=== PATIENT | male | born 1990 | race Caucasian/White ===

== ENCOUNTER 2017-09-23 00:33 | Emergency (ER) | payer SELFPAY ==
--- NOTE | 2017-09-23 00:49 | CPEKG ---
Heart Rate: 75 RR Interval: 800 P-R Interval: 176 QRSD Interval: 92 QT Interval: 360 QTC Interval: 402 P [place]: 56 QRS [place]: 43 T Wave [place]: 29 EKG Severity - OTHERWISE NORMAL ECG - EKG Impression: SINUS ARRHYTHMIA, RATE 56-81 Electronically Signed By: Sanjuanita Gao 23-Sep-2017 06:15:37
[2017-09-23 01:40] LABS: PLATELET COUNT 308 10^3/uL (150-400)
[2017-09-23] MEDS ORDERED: KETOROLAC 15 MG/1 ML SDV IVP ONE (02:07)
--- NOTE | 2017-09-23 02:18 | EDPHY ---
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 He thought his symptoms were related to allergies and took some decongestant. Then he noticed chest pain which he feels on his anterior chest which feels like pressure. He tried to go to sleep but still felt the pain so came into the emergency department. He has not had a fever. He has not any leg swelling. He has not had any recent airplane travel or long car rides. He has no personal or family history of DVT or PE. He denies any trauma to his chest.. REVIEW OF SYSTEMS Constitutional: No fever, no chills. Eyes: No discharge. ENT: No sore throat. Cardiovascular: Positive for chest pain, no palpitations. Respiratory: Positive for cough, no shortness of breath. Gastrointestinal: No abdominal pain, no vomiting. Genitourinary: No hematuria. Musculoskeletal: No back pain. Skin: No rashes. Neurological: No headache. PMHx: History of esophageal foreign body, 2 prior ER visits for this Soc Hx: Housed, nonsmoker PHYSICAL General Appearance: Alert, no distress Eyes: Pupils equal and round no pallor or injection ENT, Mouth: Mucous membranes moist Respiratory: There are no retractions, lungs are clear to auscultation Cardiovascular: Regular rate and rhythm Chest wall: Anterior chest wall tenderness to palpation Gastrointestinal: Abdomen is soft and non-tender, no masses, bowel sounds normal Neurological: A&O, moves all extremities Skin: Warm and dry, no rashes Musculoskeletal: Neck is supple non tender Extremities: symmetrical, full range of motion Psychiatric: Patient is oriented X 3, there is no agitation Source: Patient Exam Limitations: No limitations - Medical/Surgical History Hx Asthma: No Hx Chronic Respiratory Disease: No Hx Diabetes: No Hx Cardiac Disease: No Hx Renal Disease: No Hx Cirrhosis: No Hx Alcoholism: No Hx HIV/AIDS: No Hx Splenectomy or Spleen Trauma: No Other PMH: FOOD STUCK IN ESOPH, R TIB FX - orif - Social History Smoking Status: Never smoked Constitutional: Initial Vital Signs Temperature (C) 36.9 C 09/23/17 00:37 Heart Rate 84 09/23/17 00:37 Respiratory Rate 18 09/23/17 00:37 Blood Pressure 143/89 H 09/23/17 00:37 O2 Sat (%) 93 09/23/17 00:37 O2 Delivery Mode Room Air Allergies/Adverse Reactions: No Known Allergies Allergy (Verified 09/23/17 00:40) Home Medications: Medication Instructions Recorded ZYRTEC 10/12/14 Azithromycin 250 mg PO DAILY 5 Days #6 tablet 09/23/17 Cefdinir [Omnicef (*)] 300 mg PO BID 10 Days cap 09/23/17 Medical Decision Making - Diagnostics EKG Interpretation: EKG: Complete interpretation has been separately recorded in the [facility] archive. Summary impression: Normal sinus rhythm Imaging Results: Chest x-ray two view shows no cardiomegaly, no effusion, possible retrocardiac infiltrate, interpreted by me, radiology interpretation is pending. Imaging: I viewed and interpreted images myself Procedures: Bedside cardiac Ultrasound- performed and interpreted by me. Indication: Chest pain Findings: No pericardial effusion, normal EF, no signs of RV dilatation Impression: No pericardial effusion Differential Diagnosis: This is a 26-year-old healthy male who presents with cough and congestion earlier today, now with pleuritic anterior chest pain which has been present for the last several hours continuously. On arrival, vital signs are normal, he is generally well-appearing. He does have chest wall tenderness anteriorly. Differential diagnosis includes costochondritis, pericarditis, pneumonia, PE. EKG was unremarkable. Chest x-ray shows possible retrocardiac infiltrate versus peribronchial thickening. Basic labs were checked and he does have a leukocytosis with left shift. Other labs are normal. He was treated with a dose of Levaquin by mouth and Toradol for pain. His symptoms improved here. He may be suffering from a pneumonia verses costochondritis. I do not think he has pericarditis given normal cardiac silhouette, no ST segment elevation. I did a bedside ultrasound and he does not have a pericardial effusion, he does not have any signs of right heart strain to suggest pulmonary embolism. On reassessment, his pain was improved but persistent. He was given Tylenol, IV fluids, albuterol. He was reassessed and his pain had completely subsided. He has no difficulty breathing and feels almost completely better. He will be discharged home. I have explained the importance of following up as an outpatient. I will treat him with antibiotics for community-acquired pneumonia. I will give him an albuterol inhaler to go home with. - Data Points Laboratory Results: Laboratory Results 09/23/17 01:32 09/23/17 01:32 09/23/17 09/23/17 09/23/17 01:38 01:32 01:32 WBC RBC Hgb Hct MCV MCH MCHC RDW Plt Count MPV Neut % (Auto) Lymph % (Auto) [place] % (Auto) Eos % (Auto) Baso % (Auto) Nucleat RBC Rel Count Absolute Neuts (auto) Absolute Lymphs (auto) Absolute Monos (auto) Absolute Eos (auto) Absolute Basos (auto) Absolute Nucleated RBC Immature Gran % Immature Gran # D-Dimer 0.28 ug/mLFEU ug/mLFEU (0.00-0.50) Sodium 143 mEq/L mEq/L (135-145) Potassium 4.0 mEq/L mEq/L (3.3-5.0) Chloride 108 mEq/L mEq/L (97-110) Carbon Dioxide 23 mEq/l mEq/l (22-31) Anion Gap 12 mEq/L mEq/L (8-16) BUN 12 mg/dL mg/dL (7-23) Creatinine 0.9 mg/dL mg/dL (0.7-1.3) Estimated GFR > 60 Glucose 90 mg/dL mg/dL (70-100) Calcium 9.9 mg/dL mg/dL (8.5-10.4) POC Troponin I 0.00 ng/mL ng/mL (0.00-0.08) 09/23/17 01:32 WBC 19.99 10^3/uL H 10^3/uL (3.80-9.50) RBC 5.22 10^6/uL 10^6/uL (4.40-6.38) Hgb 16.9 g/dL g/dL (13.7-17.5) Hct 45.1 % % (40.0-51.0) MCV 86.4 fL fL (81.5-99.8) MCH 32.4 pg pg (27.9-34.1) MCHC 37.5 g/dL H g/dL (32.4-36.7) RDW 13.1 % % (11.5-15.2) Plt Count 308 10^3/uL 10^3/uL (150-400) MPV 10.7 fL fL (8.7-11.7) Neut % (Auto) 71.2 % % (39.3-74.2) Lymph % (Auto) 17.9 % % (15.0-45.0) [place] % (Auto) 6.1 % % (4.5-13.0) Eos % (Auto) 3.6 % % (0.6-7.6) Baso % (Auto) 0.7 % % (0.3-1.7) Nucleat RBC Rel Count 0.0 % % (0.0-0.2) Absolute Neuts (auto) 14.26 10^3/uL H 10^3/uL (1.70-6.50) Absolute Lymphs (auto) 3.57 10^3/uL H 10^3/uL (1.00-3.00) Absolute Monos (auto) 1.22 10^3/uL H 10^3/uL (0.30-0.80) Absolute Eos (auto) 0.71 10^3/uL H 10^3/uL (0.03-0.40) Absolute Basos (auto) 0.14 10^3/uL H 10^3/uL (0.02-0.10) Absolute Nucleated RBC 0.00 10^3/uL 10^3/uL (0-0.01) Immature Gran % 0.5 % % (0.0-1.1) Immature Gran # 0.09 10^3/uL 10^3/uL (0.00-0.10) D-Dimer Sodium Potassium Chloride Carbon Dioxide Anion Gap BUN Creatinine Estimated GFR Glucose Calcium POC Troponin I Medications Given: Discontinued Medications Acetaminophen (Tylenol) 1,000 mg PO EDNOW ONE Stop: 09/23/17 03:33 Last Admin: 09/23/17 03:34 Dose: 1,000 mg Albuterol Sulfate (Proventil Inh Prepack) 1 mdi TAKEHOME EDNOW ONE Stop: 09/23/17 04:52 Last Admin: 09/23/17 04:54 Dose: 1 mdi Albuterol/Ipratropium (Duoneb) 3 ml IH EDNOW ONE Stop: 09/23/17 03:46 Last Admin: 09/23/17 03:47 Dose: 3 ml Sodium Chloride (Ns) 1,000 mls @ 0 mls/hr IV EDNOW ONE; Wide Open PRN Reason: Protocol Stop: 09/23/17 03:33 Last Admin: 09/23/17 03:34 Dose: 1,000 mls Ketorolac Tromethamine (Toradol) 15 mg IVP EDNOW ONE Stop: 09/23/17 02:08 Last Admin: 09/23/17 02:12 Dose: 15 mg Levofloxacin (Levaquin) 750 mg PO EDNOW ONE PRN Reason: Protocol Stop: 09/23/17 02:09 Last Admin: 09/23/17 02:12 Dose: 750 mg Point of Care Test Results: Chemistry 09/23/17 01:38 POC Troponin I 0.00 ng/mL ng/mL (0.00-0.08) Departure - Departure Disposition: Home, Routine, Self-Care Clinical Impression: Neutrophilic leukocytosis Chest pain Qualifiers: Chest pain type: chest pain on breathing Qualified Code(s): R07.1 - Chest pain on breathing Condition: Good Instructions: Albuterol (By breathing), Pneumonia (ED) Additional Instructions: It appears that you could have a pneumonia and that is the cause of your chest pain. Because of this, you should take the antibiotics as prescribed and return to the emergency department if your worse in any way. I would like for [facility] the next 1-2 days. Please call to make an appointment. Referrals: [facility],. [Clinic] - As per Instructions Prescriptions: Azithromycin 250 mg PO DAILY 5 Days #6 tablet Cefdinir [Omnicef (*)] 300 mg PO BID 10 Days cap
[2017-09-23] MEDS ORDERED: NS 1,000 ML IV ONE (03:32)
[2017-09-23] MEDS ORDERED: ACETAMINOPHEN 500 MG TAB ONE (03:32)
[2017-09-23] MEDS ORDERED: ACETAMINOPHEN 500 MG TAB PO ONE (03:32)
[2017-09-23] MEDS ORDERED: IPRATROPIUM/ALBUTEROL 3 ML DEYVIAL IH ONE (03:45)
[2017-09-23] MEDS ORDERED: ALBUTEROL INH PREPACK MDI TAKEHOME ONE ×2 (04:50→04:51)
[2017-09-23 05:00] VITALS: BP 139/86
== END 2017-09-23 04:58 | disposition home or self-care (01) ==
DX: D72.828 Other elevated white blood cell count (principal); R07.1 Chest pain on breathing; E86.9 Volume depletion, unspecified
CPT/HCPCS: 84484-PO; 96374; J1885